=== PATIENT | male | born 1965 | race Caucasian/White ===

== ENCOUNTER 2017-04-14 15:38 | Emergency (ER) | payer SELFPAY ==
[2017-04-14] MEDS ORDERED: 0.9 % SODIUM CHLORIDE 1,000 ML IV ONE ×2 (17:38→17:45)
[2017-04-14] MEDS ORDERED: METOPROLOL TARTRATE 5 MG/5 ML VIAL IVP ONE ×3 (17:39→18:45)
[2017-04-14 18:08] LABS: BASOPHILS % 0.8 (0.0-1.5); MEAN CORPUSCULAR HEMOGLOBIN 32.4 pg (28.0-34.0); MEAN CORPUSCULAR VOLUME 95.5 fl (80.0-100.0); MONOCYTES % 8.1 % (0.0-11.0); NEUTROPHILS # 3.3 # k/uL (1.4-7.7)
[2017-04-14 18:19] LABS: eGFR (African) > 60; eGFR (Non-African) > 60
[2017-04-14] MEDS ORDERED: ASPIRIN 325 MG TABLET PO ONE (18:37)
[2017-04-14] MEDS ORDERED: LORazepam 2 MG/ML VIAL IVP ONE (18:41)
[2017-04-14] MEDS ORDERED: LORazepam 2 MG/ML VIAL ONE (18:42)
[2017-04-14] MEDS ORDERED: ASPIRIN 81 MG CHEW TAB ONE (18:43)
--- NOTE | 2017-04-14 19:13 | ED Physician Documentation ---
General Adult - HISTORIAN Historian: patient, spouse, child - HPI Stated Complaint: irregular heart rate Chief Complaint: General Adult Additional Information: pt having int tachycardiv alt w normal rate sinus rhythm-denies any c/o sob or chest pain. a few days ago heavy weight fell hit chest w/ fx c6-7 -t2 and l1 he was adm [facility] wears back brace from occiput to coccyx. he had intermittent tachycardia vs noirmal rate sinus rhythm at . THEY EVALUATED AND SENT HIM HOME SUSPECT CARDIAC CONTUSION. today he had recurrence from ht pf 80 to 180 sinus rhythm with occ pvc's and one episode ot self limited v-tach of 4 beats. his troponin was 0.06. we called DR MARTINEZ who will accept direct admit. Onset: days ago (2) Timing: still present, worse Severity: moderate Further Comments: yes (pt denies chest pain arrythmia or palpations) - ROS CONST: no problems EYES/ENT: none CVS/RESP: none. denies: shortness of breath GI/: none MS/SKIN/LYMPH: none NEURO/PSYCH: denies: headache, fainting, dizziness, tingling - PAST HX Past History: none Surgeries/Procedures: other (shoulder) Allergies/Adverse Reactions: Allergies Allergy/AdvReac Type Severity Reaction Status Date / Time No Known Allergies Allergy Verified 04/14/17 16:57 Home Medications: Ambulatory Orders Medication Instructions Recorded Oxycodone HCl [Oxecta] 5 mg PO Q6H PRN 04/14/17 - SOCIAL HX Smoking History: non-smoker Alcohol Use: none Drug Use: none - FAMILY HX Family History: No - VITAL SIGNS Vital Signs: Vital Signs Temp Pulse Resp BP Pulse Ox 98.2 F 133 H 16 155/104 95 04/14/17 15:40 04/14/17 18:38 04/14/17 15:40 04/14/17 15:40 04/14/17 18:38 - REVIEWED ASSESSMENTS Nursing Assessment Reviewed: Yes Vitals Reviewed: Yes ED Results Lab/Radiology - Lab Results Lab Results: Lab Results 04/14/17 04/14/17 04/14/17 17:55 17:55 17:55 WBC 6.00 K/ul K/ul (4.00-12.00) RBC 4.11 M/ul M/ul (3.90-5.20) Hgb 13.3 g/dL g/dL (12.0-18.0) Hct 39.2 % % (37.0-53.0) MCV 95.5 fl fl (80.0-100.0) MCH 32.4 pg pg (28.0-34.0) MCHC 33.9 g/dL g/dL (30.0-36.0) RDW 13.0 % % (11.3-14.3) Plt Count 144 K/mm3 K/mm3 (130-400) Neut % (Auto) 55.0 % % (39.0-79.0) Lymph % (Auto) 28.7 % % (16.0-50.0) [place] % (Auto) 8.1 % % (0.0-11.0) Eos % (Auto) 5.0 % % (0.0-6.8) Baso % (Auto) 0.8 (0.0-1.5) Neut # (Auto) 3.3 # k/uL # k/uL (1.4-7.7) Lymph # (Auto) 1.7 # k/uL # k/uL (0.6-4.0) [place] # (Auto) 0.5 # k/uL # k/uL (0.0-0.9) Eos # (Auto) 0.3 # k/uL # k/uL (0.0-0.6) Baso # (Auto) 0.0 # k/uL # k/uL (0.0-0.5) Reactive Lymphs % 2.5 % % (0.0-5.0) Reactive Lymphs # 0.2 # k/uL # k/uL (0.0-0.8) Sodium 138 mmol/L mmol/L (136-145) Potassium 5.3 mmol/L H mmol/L (3.5-5.0) Chloride 97 mmol/L L mmol/L (98-110) Carbon Dioxide 30 mmol/L mmol/L (20-32) BUN 10 mg/dL mg/dL (10-26) Creatinine 1.0 mg/dL mg/dL (0.4-1.5) Estimated Creat Clear 112 Est GFR ( Amer) > 60 (60 - ) Est GFR (Non-Af Amer) > 60 (60 - ) Glucose 111 mg/dL H mg/dL (70-99) Calcium 10.0 mg/dL mg/dL (8.5-10.5) Total Bilirubin 0.8 mg/dL mg/dL (0.2-1.2) AST 49 U/L H U/L (0-41) ALT 41 U/L U/L (0-45) Alkaline Phosphatase 74 U/L U/L (46-116) Troponin I 0.06 ng/mL ng/mL (0.03-0.06) Total Protein 7.4 g/dL g/dL (6.0-8.5) Albumin 4.5 g/dL g/dL (3.0-5.5) - Orders Orders: ED Orders Category Date Time Status Continuous EKG monitoring Q30M Care 04/14/17 17:38 Active Continuous Pulse Oximetry Q30M Care 04/14/17 17:[address] IV Lock 1T Care 04/14/17 17:41 Active CBC/PLATELET/DIFF Routine Lab 04/14/17 17:55 Completed CMP Stat Lab 04/14/17 17:55 Completed TROPONIN I (cTnI) Stat Lab 04/14/17 17:55 Completed 0.9 % Sodium Chloride [Normal Saline] 1,000 ml Med 04/14/17 17:38 Discontinued IV .STK-MED 0.9 % Sodium Chloride [Normal Saline] 1,000 ml Med 04/14/17 17:45 Discontinued IV Q1H Aspirin Med 04/14/17 18:43 Discontinued 324 mg .ROUTE .STK-MED ONE Aspirin Med 04/14/17 18:37 Discontinued 325 mg PO NOW ONE LORazepam [Ativan] Med 04/14/17 18:41 Discontinued 0.5 mg IVP NOW ONE LORazepam [Ativan] Med 04/14/17 18:42 Discontinued 2 mg .ROUTE .STK-MED ONE Metoprolol Tartrate [Toprol] Med 04/14/17 17:39 Discontinued 5 mg IVP .STK-MED ONE Metoprolol Tartrate [Toprol] Med 04/14/17 17:41 Discontinued 5 mg IVP NOW ONE EKG WITH COMPARISON Stat Ther 04/14/17 Ordered General Adult Physical Exam - PHYSICAL EXAM GENERAL APPEARANCE: mild distress EENT: eye inspection normal NECK: normal inspection, thyroid normal (wears brace) RESPIRATORY: no resp distress, breath sounds normal CVS: irregularly irregular rhy, frequent extrasystoles. No: heart sounds normal ABDOMEN: soft, non-tender BACK: normal inspection SKIN: warm/dry, normal color. No: cyanosis, diaphoresis, jaundice, mottled EXTREMITIES: non-tender, normal range of motion NEURO: oriented X3, CN's nml as tested, motor nml, sensation nml, mood/affect nml, cognition normal Discharge Clincal Impression: possible myocardial damage, self limited V-TACH, cardiac contusion Referrals: Nhi White FNP [Primary Care Provider] - 2 Days Home Medications: Ambulatory Orders Oxycodone HCl [Oxecta] 5 mg PO Q6H PRN 04/14/17 Comments: increase in arrythmia and pvcs while here Condition: Good Disposition: XFER SHT-TRM HOSP Decision to Admit: [id number] Decision Time: 19:17
[2017-04-14 20:25] VITALS: BP 125/89
== END 2017-04-14 19:35 | disposition short-term general hospital (02) ==
LOC: EDBD 15:38 → ED 15:38
DX: I47.2 Ventricular tachycardia (principal); T14.8 Other injury of unspecified body region; X58.XXXA Exposure to other specified factors, initial encounter; Y93.9 Activity, unspecified; Y99.9 Unspecified external cause status
CPT/HCPCS: 80053; 84484; 85025; A9270; J2060; J3490; J7030; 96361; 96374; 96375; 99284; S1016